=== PATIENT | female | born 1975 | race Caucasian/White ===

== ENCOUNTER 2017-07-07 04:26 | Emergency (ER) | payer OTHER ==
[~2017-07-07] VITALS: Ht 172.7 cm; Wt 90.7 kg
[2017-07-07] MEDS ORDERED: SODIUM CHLORIDE 0.9% 1000ML 1,000 ML IV STA (04:50)
[2017-07-07 05:06] LABS: BASOPHILS % 0.5 % (0.0-1.0); EOSINOPHILS # (AUTO) 0.4 (0.0-0.4); EOSINOPHILS % 4.2 % (0.0-6.0); HEMATOCRIT 33.1 % (34.2-44.1); LYMPHOCYTES # (AUTO) 2.4 (1.0-3.2); MEAN CORPUSCULAR HEMOGLOBIN 22.6 pg (28-32); MEAN CORPUSCULAR HGB CONC 30.2 g/dL (31-35); MEAN CORPUSCULAR VOLUME 74.7 fL (81-99); MONOCYTES # (AUTO) 0.4 (0.2-0.8); MONOCYTES % 5.1 % (4.4-11.3); NEUTROPHILS # (AUTO) 5.3 (2.1-6.9); NEUTROPHILS % 61.8 % (38.7-80.0); PLATELET COUNT 195 x10e3/uL (140-360); RED BLOOD COUNT 4.43 x10e6/uL (3.6-5.1); RED CELL DISTRIBUTION WIDTH 16.7 % (11.7-14.4)
[2017-07-07 05:17] LABS: CLARITY,URINE CLEAR (CLEAR); COLOR,URINE YELLOW (YELLOW); LEUKOCYTE ESTERASE ,URINE NEGATIVE (NEGATIVE); NITRITE,URINE NEGATIVE (NEGATIVE); PROTEIN,URINE DIPSTICK TRACE (NEGATIVE)
[2017-07-07 05:18] LABS: BILIRUBIN,URINE NEGATIVE (NEGATIVE); KETONES,URINE TRACE (NEGATIVE); PREGNANCY TEST, URINE NEGATIVE (NEGATIVE); URINE UROBILINOGEN 0.2 mg/dL (0.2 - 1)
[2017-07-07 05:22] LABS: INR 1.07; PARTIAL THROMBOPLASTIN TIME 18.4 seconds (23.8-35.5); PROTHROMBIN TIME 13.1 seconds (11.9-14.5)
[2017-07-07 05:26] LABS: BACTERIA,URINE RARE /HPF; EPITHELIAL CELLS,URINE FEW /LPF; RBC,URINE 0-5 /HPF (0-5); WBC,URINE (MAN) 0-5 /HPF (0-5)
[2017-07-07 05:32] LABS: ALANINE AMINOTRANSFERASE 47 IU/L (0-55); ALBUMIN 3.7 g/dL (3.5-5.0); ALBUMIN/GLOBULIN RATIO 0.9 (0.8-2.0); ALKALINE PHOSPHATASE 105 IU/L (40-150); ANION GAP 17.6 mmol/L (8-16); BLOOD UREA NITROGEN 7 mg/dL (7-26); BUN/CREATININE RATIO 9 (6-25); CALCIUM 9.4 mg/dL (8.4-10.2); CARBON DIOXIDE 21 mmol/L (22-29); CHLORIDE 102 mmol/L (98-107); CREATINE KINASE 35 IU/L (29-168); CREATININE, SERUM 0.79 mg/dL (0.57-1.11); EST GLOMERULAR FILTRATION RATE > 60 ML/MIN (60-); GLUCOSE 225 mg/dL (74-118); MAGNESIUM 1.4 MG/DL (1.3-2.1); POTASSIUM 3.6 mmol/L (3.5-5.1); SODIUM 137 mmol/L (136-145)
[2017-07-07] MEDS ORDERED: CLONIDINE HCL 0.1 MG TAB PO ONE (06:30)
[2017-07-07 06:39] LABS: AMPHETAMINES SCREEN,URINE NEGATIVE (NEGATIVE); BENZODIAZEPINES SCREEN,URINE NEGATIVE (NEGATIVE); PHENCYCLIDINE SCREEN,URINE NEGATIVE (NEGATIVE)
--- NOTE | 2017-07-07 06:47 | Diagnostic Imaging Report ---
EXAMINATION: CHEST 2 VIEWS INDICATION: Tachycardia. COMPARISON: None FINDINGS: TUBES and LINES: None. LUNGS: Lungs are well inflated. Lungs are clear. There is no evidence of pneumonia or pulmonary edema. PLEURA: No pleural effusion or pneumothorax. HEART AND MEDIASTINUM: The cardiomediastinal silhouette is unremarkable. BONES AND SOFT TISSUES: No acute osseous lesion. Soft tissues are unremarkable. UPPER ABDOMEN: No free air under the diaphragm. IMPRESSION: No acute thoracic abnormality. Signed by: Dr. Hayes Garcia M.D. on 07/07/2017 6:43 AM
[2017-07-07 07:59] VITALS: BP 157/89
== END 2017-07-07 08:11 | disposition home or self-care (01) ==
LOC: ER 04:26
DX: R00.2 Palpitations (principal); R73.9 Hyperglycemia, unspecified; I10 Essential (primary) hypertension
CPT/HCPCS: 36415; 71046; 80053; 80307; 81001; 81025; 82550; 82553; 83735; 83880; 84443; 84484; 85025; 85379; 85610; 85730; 93005; 99284; J7030